=== PATIENT | male | born 2000 | race Caucasian/White ===

== ENCOUNTER 2021-10-08 00:33 | Emergency (ER) | payer SELFPAY ==
[~2021-10-08] VITALS: Ht 170.2 cm; Wt 77.1 kg
--- NOTE | 2021-10-08 00:34 | NUR ---
HERNESTO PERRY. TAKEN TO CHAIR C
[2021-10-08 00:35] VITALS: BP 136/97
--- NOTE | 2021-10-08 01:19 | NUR ---
PATIENT BIB [facility] [facility]. PATIENT EXAMINED BY DR. GREGG. PATIENT MEDICALLY CLEARED AND RELEASED IN CUSTODY IN STABLE CONDITION. ORIGINAL PRE-BOOK FORM GIVEN TO OFFICER ALLISON, #[id number].
== END 2021-10-08 01:19 ==
LOC: MED 00:33
DX: S39.012A Strain of muscle, fascia and tendon of lower back, initial encounter (principal); F17.200 Nicotine dependence, unspecified, uncomplicated; Z02.89 Encounter for other administrative examinations; V89.2XXA Person injured in unspecified motor-vehicle accident, traffic, initial encounter; Y93.89 Activity, other specified; Y92.89 Other specified places as the place of occurrence of the external cause; Y99.8 Other external cause status
CPT/HCPCS: 99283